=== PATIENT | female | born 1975 | race Caucasian/White ===

== ENCOUNTER 2018-06-15 17:59 | Emergency (ER) | payer BC ==
[2018-06-15 18:15] VITALS: RESP 18
[2018-06-15] MEDS ORDERED: SODIUM CHLORIDE 0.9% 500 ML 500 ML IV STA (18:53)
[2018-06-15] MEDS ORDERED: DIPHENOX-ATROP 2.5-0.025 MG 1 EACH TAB PO STA (18:53)
[2018-06-15] MEDS ORDERED: SODIUM CHLORIDE 0.9% 1,000 ML IV STA (18:53)
--- NOTE | 2018-06-15 18:56 | ED ---
General Adult HPI - General Chief complaint: Nausea/Vomiting/Diarrhea Stated complaint: NVD Time Seen by Provider: 06/15/18 18:00 Source: patient, RN notes reviewed Mode of arrival: ambulatory Limitations: no limitations - History of Present Illness Initial comments: This is a 42-year-old female presents emergency Department stating at 5:30 this point she started having vomiting nausea and diarrhea. Patient states the vomiting stopped at about 1:00 diarrhea continues. Patient denies any abdominal pain. Patient states she occasionally has some abdominal cramping. Patient is unaware that she has a fever but she does have 101 fever in the emergency department. Patient denies any chest pain difficulty breathing shortness of breath. Patient denies any dysuria hematuria urinary frequency. Patient denies any recent antibiotic use. - Related Data Home Medications Medication Instructions Recorded Confirmed ALPRAZolam [Xanax] 1 mg PO HS 06/15/18 06/15/18 Cetirizine HCl [Zyrtec] 10 mg PO HS 06/15/18 06/15/18 Diazepam [Valium] 5 mg PO QID PRN 06/15/18 06/15/18 Gabapentin [Neurontin] 300 mg PO BID 06/15/18 06/15/18 SUMAtriptan SUCCINATE [Imitrex] 50 mg PO DAILY PRN 06/15/18 06/15/18 Sertraline HCl [Zoloft] 150 mg PO HS 06/15/18 06/15/18 Allergies Allergy/AdvReac Type Severity Reaction Status Date / Time latex Allergy Rash/Hives Verified 06/15/18 19:24 Review of Systems ROS Statement: Those systems with pertinent positive or pertinent negative responses have been documented in the HPI. ROS Other: All systems not noted in ROS Statement are negative. Past Medical History Past Medical History: Thyroid Disorder Additional Past Medical History / Comment(s): neuroptahty, migraines, anemia History of Any Multi-Drug Resistant Organisms: None Reported Past Surgical History: Appendectomy Additional Past Surgical History / Comment(s): gastric sleeve Past Psychological History: Anxiety, Depression Smoking Status: Never smoker Past Alcohol Use History: None Reported Past Drug Use History: None Reported General Exam - General Exam Comments Initial Comments: GENERAL: Patient is well-developed and well-nourished. Patient is nontoxic and well- hydrated and is in mild distress. ENT: Neck is soft and supple. No significant lymphadenopathy is noted. Oropharynx is clear. Dry mucous membranes EYES: The sclera were anicteric and conjunctiva were pink and moist. Extraocular m ovements were intact and pupils were equal round and reactive to light. Eyelids were unremarkable. PULMONARY: Unlabored respirations. Good breath sounds bilaterally. No audible rales rhonchi or wheezing was noted. CARDIOVASCULAR: There is a regular rate and rhythm without any murmurs gallops or rubs. ABDOMEN: Soft and nontender with normal bowel sounds. No palpable organomegaly was noted. There is no palpable pulsatile mass. SKIN: Skin is clear with no lesions or rashes and otherwise unremarkable. NEUROLOGIC: Patient is alert and oriented x3. Cranial nerves II through XII are grossly intact. Motor and sensory are also intact. Normal speech, volume and content. Symmetrical smile. MUSCULOSKELETAL: Normal extremities with adequate strength and full range of motion. LYMPHATICS: No significant lymphadenopathy is noted PSYCHIATRIC: Normal psychiatric evaluation. Limitations: no limitations Course Vital Signs 06/15/18 06/15/18 06/15/18 18:11 18:52 19:14 Temperature 99.2 F 101.4 F H 101.4 F H Pulse Rate 117 H 104 H Respiratory 18 18 Rate Blood Pressure 124/64 138/92 O2 Sat by Pulse 97 97 Oximetry 06/15/18 20:15 Temperature 100 F H Pulse Rate 93 Respiratory 18 Rate Blood Pressure 126/66 O2 Sat by Pulse 100 Oximetry Medical Decision Making - Medical Decision Making Patient is to vomiting or diarrhea while in the emergency department. I went back and reevaluate the patient she was feeling better and wanted to go home. - Lab Data Result diagrams: 06/15/18 19:00 06/15/18 19:00 Lab Results 06/15/18 06/15/18 Range/Units 19:00 19:00 WBC 7.5 (3.8-10.6) k/uL RBC 4.84 (3.80-5.40) m/uL Hgb 13.1 (11.4-16.0) gm/dL Hct 39.4 (34.0-46.0) % MCV 81.6 (80.0-100.0) fL MCH 27.1 (25.0-35.0) pg MCHC 33.2 (31.0-37.0) g/dL RDW 14.6 (11.5-15.5) % Plt Count 190 (150-450) k/uL Neutrophils % 88 % Lymphocytes % 6 % Monocytes % 4 % Eosinophils % 1 % Basophils % 0 % Neutrophils # 6.6 (1.3-7.7) k/uL Lymphocytes # 0.5 L (1.0-4.8) k/uL Monocytes # 0.3 (0-1.0) k/uL Eosinophils # 0.0 (0-0.7) k/uL Basophils # 0.0 (0-0.2) k/uL Sodium 137 (137-145) mmol/L Potassium 4.2 (3.5-5.1) mmol/L Chloride 106 (98-107) mmol/L Carbon Dioxide 23 (22-30) mmol/L Anion Gap 8 mmol/L BUN 15 (7-17) mg/dL Creatinine 0.81 (0.52-1.04) mg/dL Est GFR (CKD-EPI)AfAm >90 (>60 ml/min/1.73 sqM) Est GFR (CKD-EPI)NonAf >90 (>60 ml/min/1.73 sqM) Glucose 111 H (74-99) mg/dL Calcium 8.8 (8.4-10.2) mg/dL Total Bilirubin 0.8 (0.2-1.3) mg/dL AST 17 (14-36) U/L ALT 31 (9-52) U/L Alkaline Phosphatase 66 (38-126) U/L Total Protein 6.6 (6.3-8.2) g/dL Albumin 3.7 (3.5-5.0) g/dL Amylase 41 (30-110) U/L Lipase 75 (23-300) U/L Disposition Clinical Impression: Gastroenteritis Disposition: HOME SELF-CARE Condition: Good Instructions (If sedation given, give patient instructions): Gastroenteritis (ED) Is patient prescribed a controlled substance at d/c from ED?: No Referrals: Jhony Bonilla MD [Primary Care Provider] - 1-2 days Time of Disposition: 20:20
[2018-06-15] MEDS ORDERED: ACETAMINOPHEN TAB 500 MG TAB PO STA (18:57)
[2018-06-15] MEDS ORDERED: IBUPROFEN 600 MG TAB PO STA (18:57)
[2018-06-15 19:06] LABS: Basophils % (A) 0 %; Eosinophils % (A) 1 %; HCT 39.4 % (34.0-46.0); HGB 13.1 gm/dL (11.4-16.0); Lymphocytes # (A) 0.5 k/uL (1.0-4.8); Lymphocytes % (A) 6 %; MCH 27.1 pg (25.0-35.0); MCHC 33.2 g/dL (31.0-37.0); MCV 81.6 fL (80.0-100.0); Monocytes # (A) 0.3 k/uL (0-1.0); Monocytes % (A) 4 %; Neutrophils # (A) 6.6 k/uL (1.3-7.7); Neutrophils % (A) 88 %; Platelet Count 190 k/uL (150-450); RBC 4.84 m/uL (3.80-5.40); RDW 14.6 % (11.5-15.5); WBC 7.5 k/uL (3.8-10.6)
[2018-06-15 19:15] LABS: ALT 31 U/L (9-52); AST 17 U/L (14-36); Albumin 3.7 g/dL (3.5-5.0); Alkaline Phosphatase 66 U/L (38-126); Amylase 41 U/L (30-110); Anion Gap 8 mmol/L; Blood Urea Nitrogen 15 mg/dL (7-17); Calcium 8.8 mg/dL (8.4-10.2); Carbon Dioxide 23 mmol/L (22-30); Chloride 106 mmol/L (98-107); Glucose 111 mg/dL (74-99); Lipase 75 U/L (23-300); Potassium 4.2 mmol/L (3.5-5.1); Sodium 137 mmol/L (137-145); Total Bilirubin 0.8 mg/dL (0.2-1.3); Total Protein 6.6 g/dL (6.3-8.2)
[2018-06-15 20:16] VITALS: BP 126/66; PULSE 93; TEMP 100
[2018-06-15] MEDS ORDERED: DIPHENOX-ATROP 2.5-0.025 MG 1 EACH TAB PO PRN (20:20)
[2018-06-15] MEDS ORDERED: DIPHENOX-ATROP STARTER PACK 8 TAB BTL PO STA (20:32)
== END 2018-06-15 20:38 | disposition home or self-care (01) ==
LOC: EC 17:59
DX: K52.9 Noninfective gastroenteritis and colitis, unspecified (principal); G43.909 Migraine, unspecified, not intractable, without status migrainosus; F32.9 Major depressive disorder, single episode, unspecified; F41.9 Anxiety disorder, unspecified; Z79.899 Other long term (current) drug therapy; Z91.040 Latex allergy status; Z90.49 Acquired absence of other specified parts of digestive tract
CPT/HCPCS: 36415; 80053; 82150; 83690; 85025; 96360; 99284

== ENCOUNTER 2018-09-26 23:41 | Emergency (ER) | payer BC ==
[2018-09-27 00:18] VITALS: RESP 18; TEMP 98.2
[2018-09-27] MEDS ORDERED: IBUPROFEN 400 MG TAB PO STA (01:20)
[2018-09-27] MEDS ORDERED: HYDROcodone/APAP 7.5-325MG 1 EACH TAB PO ONE (01:21)
--- NOTE | 2018-09-27 01:34 | ED ---
Fall HPI - General Chief Complaint: Fall Stated Complaint: Fall, R Lower Ext Pain Time Seen by Provider: 09/27/18 00:30 Source: patient Mode of arrival: wheelchair - History of Present Illness Initial Comments: this patient is a 43-year-old woman who states that she had a fall tonight. Patient states that she had slipped on a bare hardwood floor that was slippery. She went down and landed on her right knee and then fell to the side striking her right hip and ankle. He did not have any head or neck injury. She denies any pain there as well as in the chest or abdomen. No other extremity injuries. MD Complaint: fall -: hour(s) Fall From: standing Fall Witnessed: no Place Fall Occurred: home Loss of Consciousness: none Prolonged Down Time?: no Symptoms Prior to Fall: none Location - Extremities: Right: Knee, Ankle Severity: moderate Quality: aching Context: tripped/slipped Associated Symptoms: denies - Related Data Home Medications Medication Instructions Recorded Confirmed ALPRAZolam [Xanax] 1 mg PO HS 06/15/18 09/27/18 Cetirizine HCl [Zyrtec] 10 mg PO HS 06/15/18 09/27/18 Diazepam [Valium] 5 mg PO QID PRN 06/15/18 09/27/18 Gabapentin [Neurontin] 300 mg PO BID 06/15/18 09/27/18 Sertraline HCl [Zoloft] 150 mg PO HS 06/15/18 09/27/18 Previous Rx's Medication Instructions Recorded Hydrocodone/Acetaminophen [[place] 1 each PO Q6HR PRN #10 tab 09/27/18 5-325] Ibuprofen 800 mg PO TID #20 tablet 09/27/18 Allergies Allergy/AdvReac Type Severity Reaction Status Date / Time latex Allergy Rash/Hives Verified 09/27/18 00:18 Review of Systems ROS Statement: Those systems with pertinent positive or pertinent negative responses have been documented in the HPI. ROS Other: All systems not noted in ROS Statement are negative. Constitutional: Denies: fever, weakness Eyes: Denies: vision change ENT: Denies: epistaxis Respiratory: Denies: cough, dyspnea Cardiovascular: Denies: chest pain, syncope Gastrointestinal: Denies: abdominal pain, nausea, vomiting Genitourinary: Denies: dysuria, hematuria Musculoskeletal: Reports: as per HPI, arthralgia. Denies: back pain Skin: Denies: rash Neurological: Denies: headache, weakness, numbness Past Medical History Past Medical History: Thyroid Disorder Additional Past Medical History / Comment(s): neuropathy, migraines, anemia History of Any Multi-Drug Resistant Organisms: None Reported Past Surgical History: Appendectomy Additional Past Surgical History / Comment(s): gastric sleeve Past Psychological History: Anxiety, Depression Smoking Status: Never smoker Past Alcohol Use History: None Reported Past Drug Use History: None Reported General Exam Limitations: physical limitation General appearance: alert, in no apparent distress Head exam: Present: atraumatic, normocephalic Eye exam: Present: normal appearance. Absent: scleral icterus, conjunctival injection Neck exam: Present: full ROM. Absent: normal inspection, tenderness, meningismus Respiratory exam: Present: normal lung sounds bilaterally. Absent: respiratory distress, wheezes, rales, rhonchi, stridor Cardiovascular Exam: Present: regular rate, normal rhythm, normal heart sounds. Absent: systolic murmur, diastolic murmur, rubs, gallop GI/Abdominal exam: Present: soft. Absent: distended, tenderness, guarding, rebound, mass Extremities exam: Present: normal inspection, normal capillary refill. Absent: pedal edema, calf tenderness Back exam: Present: normal inspection. Absent: CVA tenderness (R), CVA tenderness (L) Neurological exam: Present: alert Skin exam: Present: warm, dry, intact, normal color. Absent: rash Course Vital Signs 09/27/18 00:12 Temperature 98.2 F Pulse Rate 72 Respiratory 18 Rate Blood Pressure 133/90 O2 Sat by Pulse 98 Oximetry Disposition Clinical Impression: Fall, Contusion, Ankle sprain Disposition: HOME SELF-CARE Condition: Good Instructions (If sedation given, give patient instructions): Ankle Sprain (ED), Knee Pain (ED) Prescriptions: Ibuprofen 800 mg PO TID #20 tablet Hydrocodone/Acetaminophen [[place] 5-325] 1 each PO Q6HR PRN #10 tab PRN Reason: Pain Is patient prescribed a controlled substance at d/c from ED?: Yes When asked, does pt state using other controlled substances?: Yes If prescribed controlled substance>3 days was MAPS reviewed?: Prescribed <3 Days If opioid is for acute pain is fill amount 7 days or less?: Yes If Rx opioid, was Start Talking consent form obtained?: Yes Referrals: Jhony Bonilla MD [Primary Care Provider] - 1-2 days
--- NOTE | 2018-09-27 02:16 | XR ---
EXAM: XR Right Tibia and Fibula, 2 Views CLINICAL HISTORY: ITS.REASON XR Reason: Pain TECHNIQUE: Frontal and lateral views of the right tibia and fibula. COMPARISON: No relevant prior studies available. FINDINGS: Bones/joints: Unremarkable. No acute fracture. No dislocation. Soft tissues: Unremarkable. No radiopaque foreign body. IMPRESSION: Normal right tibia and fibula x-rays.
--- NOTE | 2018-09-27 02:17 | XR ---
EXAM: XR Right Femur, 2 Views CLINICAL HISTORY: ITS.REASON XR Reason: Pain TECHNIQUE: Frontal and lateral views of the right femur. COMPARISON: No relevant prior studies available. FINDINGS: Bones/joints: Unremarkable. No acute fracture. No dislocation. Soft tissues: Unremarkable. IMPRESSION: Normal right femur x-rays.
[2018-09-27 02:55] VITALS: BP 138/81; PULSE 71
== END 2018-09-27 02:54 | disposition home or self-care (01) ==
LOC: EC 23:41
DX: S93.401A Sprain of unspecified ligament of right ankle, initial encounter (principal); S80.01XA Contusion of right knee, initial encounter; G62.9 Polyneuropathy, unspecified; F32.9 Major depressive disorder, single episode, unspecified; F41.9 Anxiety disorder, unspecified; Z91.040 Latex allergy status; Z79.899 Other long term (current) drug therapy; Z86.69 Personal history of other diseases of the nervous system and sense organs; W01.0XXA Fall on same level from slipping, tripping and stumbling without subsequent striking against object, initial encounter; Y93.01 Activity, walking, marching and hiking; Y92.009 Unspecified place in unspecified non-institutional (private) residence as the place of occurrence of the external cause
CPT/HCPCS: 99283

== ENCOUNTER 2019-07-15 11:19 | Emergency (ER) | payer BC, OTHER ==
[2019-07-15 11:25] VITALS: BP 162/100; PULSE 72; RESP 18; TEMP 98
--- NOTE | 2019-07-15 11:39 | ED ---
General Adult HPI - General Chief complaint: Extremity Injury, Upper Stated complaint: finger lac Time Seen by Provider: 07/15/19 11:26 Source: patient, RN notes reviewed Mode of arrival: ambulatory Limitations: no limitations - History of Present Illness Initial comments: 43-year-old female with a past medical history of neuropathy, migraines, anemia presents to the emergency department for a chief complaint of finger problem. Patient states she "slammed her finger in the car door" yesterday afternoon. States that she had a small laceration. She was seen at [facility], had negative x-rays of the finger. She states that the wound was then glued. Patient states that now she is concerned that it was glued instead of stitched. States that she is concerned infection could get trapped under the glue. She denies any streaking or spreading redness. Does state it appears somewhat swollen. She does not have fever or chills. Tetanus was updated.Patient has no other complaints at this time including shortness of breath, chest pain, abdominal pain, nausea or vomiting, headache, or visual changes. - Related Data Home Medications Medication Instructions Recorded Confirmed ALPRAZolam [Xanax] 1 mg PO HS 06/15/18 09/27/18 Cetirizine HCl [Zyrtec] 10 mg PO HS 06/15/18 09/27/18 Diazepam [Valium] 5 mg PO QID PRN 06/15/18 09/27/18 Gabapentin [Neurontin] 300 mg PO BID 06/15/18 09/27/18 Sertraline HCl [Zoloft] 150 mg PO HS 06/15/18 09/27/18 Previous Rx's Medication Instructions Recorded Hydrocodone/Acetaminophen [[place] 1 each PO Q6HR PRN #10 tab 09/27/18 5-325] Ibuprofen 800 mg PO TID #20 tablet 09/27/18 Acetaminophen [Tylenol] 500 mg PO Q4-6H PRN #20 tab 07/15/19 Cephalexin [Keflex] 500 mg PO Q6HR 7 Days #28 cap 07/15/19 Allergies Allergy/AdvReac Type Severity Reaction Status Date / Time latex Allergy Rash/Hives Verified 07/15/19 11:25 Review of Systems ROS Statement: Those systems with pertinent positive or pertinent negative responses have been documented in the HPI. ROS Other: All systems not noted in ROS Statement are negative. Past Medical History Past Medical History: Thyroid Disorder Additional Past Medical History / Comment(s): neuropathy, migraines, anemia History of Any Multi-Drug Resistant Organisms: None Reported Past Surgical History: Appendectomy Additional Past Surgical History / Comment(s): gastric sleeve Past Psychological History: Anxiety, Depression Smoking Status: Never smoker Past Alcohol Use History: None Reported Past Drug Use History: None Reported General Exam Limitations: no limitations General appearance: alert, in no apparent distress Head exam: Present: atraumatic, normocephalic, normal inspection Eye exam: Present: normal appearance, PERRL, EOMI. Absent: scleral icterus, conjunctival injection, periorbital swelling ENT exam: Present: normal exam, mucous membranes moist Neck exam: Present: normal inspection. Absent: tenderness, meningismus, lymphadenopathy Respiratory exam: Present: normal lung sounds bilaterally. Absent: respiratory distress, wheezes, rales, rhonchi, stridor Cardiovascular Exam: Present: regular rate, normal rhythm, normal heart sounds. Absent: systolic murmur, diastolic murmur, rubs, gallop, clicks Extremities exam: Present: other (Patient has glue noted to the dorsum of the right second digit just proximal to the nail bed. There is no surrounding erythema or edema. There is no streaking redness. There is no evidence of infection. No purulent material.) Neurological exam: Present: alert Course Vital Signs 07/15/19 11:21 Temperature 98.0 F Pulse Rate 72 Respiratory 18 Rate Blood Pressure 162/100 O2 Sat by Pulse 98 Oximetry Medical Decision Making - Medical Decision Making HPI and physical exam as documented. Patient had negative x-rays at [facility]. I do not see any evidence of infection. There is unlikely to be infection within a less than 24-hour timeframe. However I did discuss with patient that we will start her on antibiotics to prevent infection and this did ease her anxiety somewhat. I also discussed reasons to return to the emergency department that would includes streaking or spreading redness, significant edema, fever, or purulent drainage. She is in agreement with this. She does request a prescription for Tylenol as well. She will return for any worsening symptoms and will otherwise follow up with primary care. Disposition Clinical Impression: Laceration Disposition: HOME SELF-CARE Condition: Good Instructions (If sedation given, give patient instructions): Laceration (ED), Skin Adhesive Care (ED) Additional Instructions: Take antibiotic as directed. Keep monitoring the finger for any worsening symptoms and return if these occur. These could include purulent drainage, streaking redness, fevers. Return if you have any other concerns as well. Otherwise follow-up with primary care for recheck in one to 2 days. Prescriptions: Cephalexin [Keflex] 500 mg PO Q6HR 7 Days #28 cap Acetaminophen [Tylenol] 500 mg PO Q4-6H PRN #20 tab PRN Reason: Pain Is patient prescribed a controlled substance at d/c from ED?: No Referrals: Gildardo Muller MD [Primary Care Provider] - 1-2 days Time of Disposition: 11:37
== END 2019-07-15 11:44 | disposition home or self-care (01) ==
LOC: EC 11:19
DX: S61.210A Laceration without foreign body of right index finger without damage to nail, initial encounter (principal); F41.9 Anxiety disorder, unspecified; F32.9 Major depressive disorder, single episode, unspecified; G62.9 Polyneuropathy, unspecified; Z79.899 Other long term (current) drug therapy; Z91.040 Latex allergy status; W23.0XXA Caught, crushed, jammed, or pinched between moving objects, initial encounter
CPT/HCPCS: 99282

== ENCOUNTER 2022-09-07 08:18 | Day surgery (SDC) | payer BC, OTHER ==
[2022-09-03 09:31] VITALS: BMI 49.8
[~2022-09-07 08:18] MED LIST: LACTATED RINGERS 1,000 ML IV SCH; LIDOCAINE 1% (10MG/ML) FOR IV START INTRADERMA PRN
[2022-09-07 08:47] VITALS: TEMP 97
[2022-09-07] MEDS ORDERED: PROPOFOL 10 MG/ML 20 ML VIAL IV ONE (09:18)
--- NOTE | 2022-09-07 09:20 | P.GSHP ---
History of Present Illness H&P Date: 09/07/22 Chief Complaint: Colon cancer screening 46-year-old female here today for colonoscopy. No bowel complaints currently. Several months ago she did have diverticulitis. No rectal bleeding. No family history of colon cancer. Past Medical History Past Medical History: Thyroid Disorder Additional Past Medical History / Comment(s): neuropathy (nerve damage left arm., migraines., anemia History of Any Multi-Drug Resistant Organisms: None Reported Past Surgical History: Appendectomy Additional Past Surgical History / Comment(s): gastric sleeve (2018-[facility]) Past Anesthesia/Blood Transfusion Reactions: No Reported Reaction Past Psychological History: Anxiety, Depression Smoking Status: Current some day smoker Past Alcohol Use History: Occasional Past Drug Use History: Marijuana Additional Drug Use History / Comment(s): edibles -gummies - Past Family History Mother Family Medical History: No Reported History Medications and Allergies Home Medications Medication Instructions Recorded Confirmed Type Cetirizine HCl [Zyrtec] 10 mg PO HS 06/15/18 09/07/22 History Ergocalciferol [Vitamin D2 (1250 50,000 unit PO WEEKLY 09/03/22 09/07/22 History Mcg = 36003 Iu)] FLUoxetine HCL [Prozac] 40 mg PO HS 09/03/22 09/07/22 History Iron 1 dose PO DAILY 09/03/22 09/07/22 History Multivit with Calcium,Iron,Min 1 each PO DAILY 09/03/22 09/07/22 History [Women's Multivitamin] busPIRone HCL [Buspirone HCl] 15 mg PO BID 09/03/22 09/07/22 History traZODone HCL [Desyrel] 50 mg PO HS 09/03/22 09/07/22 History oxyBUTYnin chloride [oxyBUTYnin 5 mg PO DAILY 09/07/22 09/07/22 History chloride ER] Allergies Allergy/AdvReac Type Severity Reaction Status Date / Time latex Allergy Rash/Hives Verified 09/07/22 08:43 Surgical - Exam Vital Signs Temp Pulse Resp BP Pulse Ox 97.0 F L 81 16 151/72 98 09/07/22 08:46 09/07/22 08:46 09/07/22 08:46 09/07/22 08:46 09/07/22 08:46 Physical exam: General: Well-developed, well-nourished HEENT: Normocephalic, sclerae nonicteric Abdomen: Nontender, nondistended Extremities: No edema Neuro: Alert and oriented Assessment and Plan (1) Colon cancer screening Narrative/Plan: Will proceed with colonoscopy at this time Current Visit: Yes Status: Acute Code(s): Z12.11 - ENCOUNTER FOR SCREENING FOR MALIGNANT NEOPLASM OF COLON SNOMED Code(s): 772142149
--- NOTE | 2022-09-07 09:38 | P.PCN ---
Date of Procedure: 09/07/22 Procedure(s) Performed: PREOPERATIVE DIAGNOSIS: Colon cancer screening POSTOPERATIVE DIAGNOSIS: Diverticulosis PROCEDURE: Colonoscopy ANESTHESIA: MAC SURGEON: Surya Gallardo M.D. SPECIMENS: None ENDOSCOPIC PROCEDURE: The patient was placed on the endoscopy table in the left decubitus position. The Olympus colonoscope was inserted into the anus and passed under direct visualization to the base of the cecum. The appendiceal orifice was visualized. From that point the scope was slowly withdrawn inspe cting all surfaces carefully. There were no neoplastic inflammatory or polypoid lesions throughout the cecum, ascending, transverse, descending, sigmoid and rectum. There was scattered diverticulosis noted throughout the colon. Digital rectal examination was normal. The patient was taken to the recovery room in stable condition per anesthesia guidelines. RECOMMENDATIONS: Resume diet. Follow-up colonoscopy 10 years.
[2022-09-07 09:44] VITALS: RESP 18
[2022-09-07 10:05] VITALS: BP 133/72; PULSE 78
== END 2022-09-07 10:19 | disposition home or self-care (01) ==
LOC: ORWHC2ENDO 08:18
PROVIDERS: ATTEND Surgery
DX: Z12.11 Encounter for screening for malignant neoplasm of colon (principal); K57.30 Diverticulosis of large intestine without perforation or abscess without bleeding; E07.9 Disorder of thyroid, unspecified; G62.9 Polyneuropathy, unspecified; F41.8 Other specified anxiety disorders; G43.909 Migraine, unspecified, not intractable, without status migrainosus; D64.9 Anemia, unspecified; F10.90 Alcohol use, unspecified, uncomplicated; F17.200 Nicotine dependence, unspecified, uncomplicated; F12.90 Cannabis use, unspecified, uncomplicated; Z90.49 Acquired absence of other specified parts of digestive tract; Z98.84 Bariatric surgery status; Z79.890 Hormone replacement therapy; Z79.899 Other long term (current) drug therapy; Z91.040 Latex allergy status
CPT/HCPCS: 81025; 45378; J2704

== ENCOUNTER 2023-05-26 12:00 | Observation (INO) | payer BC, OTHER ==
[2023-05-26 12:17] LABS: Basophils % (A) 0 %; Eosinophils # (A) 0.1 k/uL (0-0.7); Eosinophils % (A) 2 %; HGB 10.8 gm/dL (11.4-16.0); Hypochromasia Slight; Lymphocytes # (A) 2.2 k/uL (1.0-4.8); Lymphocytes % (A) 32 %; MCH 23.8 pg (25.0-35.0); MCHC 31.9 g/dL (31.0-37.0); MCV 74.8 fL (80.0-100.0); Mean Platelet Volume 7.5; Microcytosis Slight; Monocytes # (A) 0.3 k/uL (0-1.0); Monocytes % (A) 4 %; Neutrophils # (A) 4.1 k/uL (1.3-7.7); Neutrophils % (A) 59 %; Platelet Count 232 k/uL (150-450); RBC 4.54 m/uL (3.80-5.40); RDW 14.9 % (11.5-15.5)
--- NOTE | 2023-05-26 12:31 | ED ---
General Adult HPI - General Chief complaint: Chest Pain Stated complaint: Chest pain Time Seen by Provider: 05/26/23 12:00 Source: patient, EMS, RN notes reviewed, old records reviewed Mode of arrival: EMS Limitations: no limitations - History of Present Illness Initial comments: This is a 47-year-old female who presents to the emergency department comp laining of chest pain that started this morning she became very short of breath. When EMS arrived they gave her aspirin and Nitropaste and it relieved her pain. Patient denies any diabetes high blood pressure high cholesterol or smoking history. Patient [place] any family history. Patient states she is chest pain- free at this point. Patient states that the pain was a pressure sensation. Patient denies any recent fever chills or cough. Patient denies any headache patient has numbness weakness. Patient has any back pain. Patient denies abdominal pain patient has nausea vomiting diarrhea. - Related Data Home Medications Medication Instructions Recorded Confirmed Cetirizine HCl [Zyrtec] 10 mg PO HS 06/15/18 09/07/22 Ergocalciferol [Vitamin D2 (1250 50,000 unit PO WEEKLY 09/03/22 09/07/22 Mcg = 93165 Iu)] FLUoxetine HCL [Prozac] 40 mg PO HS 09/03/22 09/07/22 Iron 1 dose PO DAILY 09/03/22 09/07/22 Multivit with Calcium,Iron,Min 1 each PO DAILY 09/03/22 09/07/22 [Women's Multivitamin] busPIRone HCL [Buspirone HCl] 15 mg PO BID 09/03/22 09/07/22 traZODone HCL [Desyrel] 50 mg PO HS 09/03/22 09/07/22 oxyBUTYnin chloride [oxyBUTYnin 5 mg PO DAILY 09/07/22 09/07/22 chloride ER] Allergies Allergy/AdvReac Type Severity Reaction Status Date / Time latex Allergy Rash/Hives Verified 09/07/22 08:43 Review of Systems ROS Statement: Those systems with pertinent positive or pertinent negative responses have been documented in the HPI. ROS Other: All systems not noted in ROS Statement are negative. Past Medical History Past Medical History: Thyroid Disorder Additional Past Medical History / Comment(s): neuropathy (nerve damage left arm., migraines., anemia History of Any Multi-Drug Resistant Organisms: None Reported Past Surgical History: Appendectomy Additional Past Surgical History / Comment(s): gastric sleeve (2018-[facility]) Past Anesthesia/Blood Transfusion Reactions: No Reported Reaction Past Psychological History: Anxiety, Depression Smoking Status: Current some day smoker Past Alcohol Use History: Occasional Past Drug Use History: Marijuana - Past Family History Mother Family Medical History: No Reported History General Exam - General Exam Comments Initial Comments: GENERAL: Patient is well-developed and well-nourished. Patient is nontoxic and well- hydrated and is in no acute distress. ENT: Neck is soft and supple. No significant lymphadenopathy is noted. Oropharynx is clear. Moist mucous membranes. Neck has full range of motion without eliciting any pain. EYES: The sclera were anicteric and conjunctiva were pink and moist. Extraocular movements were intact and pupils were equal round and reactive to light. Eyelids were unremarkable. PULMONARY: Unlabored respirations. Good breath sounds bilaterally. No audible rales rhonchi or wheezing was noted. CARDIOVASCULAR: There is a regular rate and rhythm without any murmurs gallops or rubs. ABDOMEN: Soft and nontender with normal bowel sounds. SKIN: Skin is clear with no lesions or rashes and otherwise unremarkable. NEUROLOGIC: Patient is alert and oriented x3. Cranial nerves II through XII are grossly intact. Motor and sensory are also intact. Normal speech, volume and content. Symmetrical smile. MUSCULOSKELETAL: Normal extremities with adequate strength and full range of motion. No lower extremity swelling or edema. No calf tenderness. LYMPHATICS: No significant lymphadenopathy is noted PSYCHIATRIC: Normal psychiatric evaluation. 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 EKG shows no ST segment ovation or depression Was pt. sent in by a medical professional or institution (, PA, DESULPHURING OPERATOR, urgent care, hospital, or [place] health care facility...) When possible be specific @ -No Did you speak to anyone other than the patient for history (EMS, parent, family, police, friend...)? What history was obtained from this source @ -No Did you review nursing and triage notes (agree or disagree)? Why? @ -I reviewed and agree with nursing and triage notes Were old charts reviewed (outside hosp., previous admission, EMS record, old EKG, old radiological studies, urgent care reports/EKG's, [place] health care facility records)? Report findings @ -I reviewed old charts and prior lab work on this patient Differential Diagnosis (chest pain, altered mental status, abdominal pain women, abdominal pain men, vaginal bleeding, weakness, fever, dyspnea, syncope, headache, dizziness, GI bleed, back pain, seizure, CVA, palpatations, mental health, musculoskeletal)? @ -Differential Chest Pain: Stable Angina, Unstable Angina, STEMI, NSTEMI Aortic Dissection, Pneumothorax, Musculoskeletal, Esophageal Spasm GERD, Cholecystitis, Pancreatitis, Zoster, this is not meant to be an all-inclusive list. EKG interpreted by me (3pts min.). @ -As above X-rays interpreted by me (1pt min.). @ -Chest x-ray shows no acute abnormality CT interpreted by me (1pt min.). @ -None done U/S interpreted by me (1pt. min.). @ -None done What testing was considered but not performed or refused? (CT, X-rays, U/S, labs)? Why? @ -None What meds were considered but not given or refused? Why? @ -None Did you discuss the management of the patient with other professionals (professionals i.e. , PA, DESULPHURING OPERATOR, lab, RT, psych nurse, social media developer, immigration lawyer, teacher, labor relations officer, residential case manager)? Give summary @ -I spoke with Dr. Muller he agreed to admit the patient admitted the patient Was smoking cessation discussed for >3mins.? @ -No Was critical care preformed (if so, how long)? @ -No Were there social determinants of health that impacted care today? How? (Homelessness, low income, unemployed, alcoholism, drug addiction, transportation, low edu. Level, literacy, decrease access to med. care, m[facility], rehab)? @ -No Was there de-escalation of care discussed even if they declined (Discuss DNR or withdrawal of care, Hospice)? DNR status @ -No What co-morbidities impacted this encounter? (DM, HTN, Smoking, COPD, CAD, Cancer, CVA, ARF, Chemo, Hep., AIDS, mental health diagnosis, sleep apnea, morbid obesity)? @ -None Was patient admitted / discharged? Hospital course, mention meds given and route, prescriptions, significant lab abnormalities, going to OR and other pertinent info. @ -Patient was chest pain free and he already received aspirin on her way in. Patient did get Nitropaste. I spoke with Dr. Muller he agreed admit the patient admit the patient I consulted cardiology and I wrote admitting orders Undiagnosed new problem with uncertain prognosis? @ -No Drug Therapy requiring intensive monitoring for toxicity (Heparin, Nitro, Insulin, Cardizem)? @ -No Were any procedures done? @ -No Diagnosis/symptom? @ -Chest pain Acute, or Chronic, or Acute on Chronic? @ -Acute Uncomplicated (without systemic symptoms) or Complicated (systemic symptoms)? @ -Complicated Side effects of treatment? @ -No Exacerbation, Progression, or Severe Exacerbation? @ -No Poses a threat to life or bodily function? How? (Chest pain, USA, NC, pneumonia, PE, COPD, DKA, ARF, appy, cholecystitis, CVA, Diverticulitis, Homicidal, Suicidal, threat to staff... and all critical care pts) @ -Yes this could lead to an NC and endorgan dysfunction - Lab Data Result diagrams: 05/26/23 12:10 05/26/23 12:10 Lab Results 05/26/23 05/26/23 05/26/23 Range/Units 12:10 12:10 12:10 WBC 7.0 (3.8-10.6) k/uL RBC 4.54 (3.80-5.40) m/uL Hgb 10.8 L (11.4-16.0) gm/dL Hct 34.0 (34.0-46.0) % MCV 74.8 L (80.0-100.0) fL MCH 23.8 L (25.0-35.0) pg MCHC 31.9 (31.0-37.0) g/dL RDW 14.9 (11.5-15.5) % Plt Count 232 (150-450) k/uL MPV 7.5 Neutrophils % 59 % Lymphocytes % 32 % Monocytes % 4 % Eosinophils % 2 % Basophils % 0 % Neutrophils # 4.1 (1.3-7.7) k/uL Lymphocytes # 2.2 (1.0-4.8) k/uL Monocytes # 0.3 (0-1.0) k/uL Eosinophils # 0.1 (0-0.7) k/uL Basophils # 0.0 (0-0.2) k/uL Hypochromasia Slight Microcytosis Slight PT 10.0 (10.0-12.5) sec INR 0.9 (<1.2) APTT 20.0 L (22.0-30.0) sec Sodium 139 (137-145) mmol/L Potassium 4.2 (3.5-5.1) mmol/L Chloride 108 H (98-107) mmol/L Carbon Dioxide 23 (22-30) mmol/L Anion Gap 8 mmol/L BUN 12 (7-17) mg/dL Creatinine 0.71 (0.52-1.04) mg/dL Est GFR (CKD-EPI)AfAm >90 (>60 ml/min/1.73 sqM) Est GFR (CKD-EPI)NonAf >90 (>60 ml/min/1.73 sqM) Glucose 94 (74-99) mg/dL Calcium 9.1 (8.4-10.2) mg/dL Magnesium 1.8 (1.6-2.3) mg/dL Total Bilirubin 0.5 (0.2-1.3) mg/dL AST 29 (14-36) U/L ALT 17 (4-34) U/L Alkaline Phosphatase 97 (38-126) U/L Troponin I (0.000-0.034) ng/mL Total Protein 6.3 (6.3-8.2) g/dL Albumin 3.5 (3.5-5.0) g/dL 05/26/23 Range/Units 12:10 WBC (3.8-10.6) k/uL RBC (3.80-5.40) m/uL Hgb (11.4-16.0) gm/dL Hct (34.0-46.0) % MCV (80.0-100.0) fL MCH (25.0-35.0) pg MCHC (31.0-37.0) g/dL RDW (11.5-15.5) % Plt Count (150-450) k/uL MPV Neutrophils % % Lymphocytes % % Monocytes % % Eosinophils % % Basophils % % Neutrophils # (1.3-7.7) k/uL Lymphocytes # (1.0-4.8) k/uL Monocytes # (0-1.0) k/uL Eosinophils # (0-0.7) k/uL Basophils # (0-0.2) k/uL Hypochromasia Microcytosis PT (10.0-12.5) sec INR (<1.2) APTT (22.0-30.0) sec Sodium (137-145) mmol/L Potassium (3.5-5.1) mmol/L Chloride (98-107) mmol/L Carbon Dioxide (22-30) mmol/L Anion Gap mmol/L BUN (7-17) mg/dL Creatinine (0.52-1.04) mg/dL Est GFR (CKD-EPI)AfAm (>60 ml/min/1.73 sqM) Est GFR (CKD-EPI)NonAf (>60 ml/min/1.73 sqM) Glucose (74-99) mg/dL Calcium (8.4-10.2) mg/dL Magnesium (1.6-2.3) mg/dL Total Bilirubin (0.2-1.3) mg/dL AST (14-36) U/L ALT (4-34) U/L Alkaline Phosphatase (38-126) U/L Troponin I <0.012 (0.000-0.034) ng/mL Total Protein (6.3-8.2) g/dL Albumin (3.5-5.0) g/dL Disposition Clinical Impression: Chest pain Disposition: ADMITTED IP TO THIS HOSP Referrals: Christina Ferreira DO [REFERRING] - 1-2 days Time of Disposition: 13:33
[2023-05-26 12:32] LABS: ALT 17 U/L (4-34); AST 29 U/L (14-36); African American GFR (CKD) >90 (>60 ml/min/1.73 sqM); Albumin 3.5 g/dL (3.5-5.0); Alkaline Phosphatase 97 U/L (38-126); Anion Gap 8 mmol/L; Blood Urea Nitrogen 12 mg/dL (7-17); Calcium 9.1 mg/dL (8.4-10.2); Carbon Dioxide 23 mmol/L (22-30); Chloride 108 mmol/L (98-107); Glucose 94 mg/dL (74-99); Magnesium 1.8 mg/dL (1.6-2.3); Non-African American GFR(CKD) >90 (>60 ml/min/1.73 sqM); Potassium 4.2 mmol/L (3.5-5.1); Sodium 139 mmol/L (137-145); Total Bilirubin 0.5 mg/dL (0.2-1.3); Total Protein 6.3 g/dL (6.3-8.2)
[2023-05-26] MEDS: NITROGLYCERIN OINT 1 INCH/GM PACKET TOPICAL STA (12:34)
[2023-05-26 12:39] LABS: INR 0.9 (<1.2)
--- NOTE | 2023-05-26 12:54 | XR ---
EXAMINATION TYPE: XR chest 2V DATE OF EXAM: 05/26/2023 12:49 PM CLINICAL INDICATION:Female, 47 years old with history of Chest Pain; [facility] COMPARISON: Chest radiographs from 06/25/2010 TECHNIQUE: XR chest 2V Frontal and lateral views of the chest. FINDINGS: Lungs/Pleura: There is no evidence of pleural effusion, focal consolidation, or pneumothorax. Pulmonary vascularity: Unremarkable. Heart/mediastinum: Cardiomediastinal silhouette is unremarkable. Musculoskeletal: No acute osseous pathology. Other findings: None IMPRESSION: No acute cardiopulmonary disease/process.
[2023-05-26] MEDS ORDERED: NITROGLYCERIN SL TABS 0.4 MG TAB SUBLINGUAL PRN (13:33)
[2023-05-26] MEDS: NITROGLYCERIN OINT 1 INCH/GM PACKET TOPICAL SCH (17:44)
[2023-05-27] MEDS: LORATADINE 10 MG TAB PO SCH (00:43)
[2023-05-27] MEDS: traZODone HCL 50 MG TAB PO SCH (00:44)
[2023-05-27] MEDS: GABAPENTIN 300 MG CAP PO STA (00:44)
[2023-05-27 06:38] VITALS: TEMP 97.9
[2023-05-27] MEDS: busPIRone HCl 10 MG TAB PO SCH (08:51)
[2023-05-27] MEDS: ASPIRIN 81 MG PO SCH (08:51)
[2023-05-27] MEDS ORDERED: ASPIRIN 325 MG TAB PO SCH (09:00)
[2023-05-27 09:20] VITALS: BP 137/53; PULSE 87; RESP 16
--- NOTE | 2023-05-27 09:42 | P.CRDCN ---
History of Present Illness History of present illness: HISTORY OF PRESENT ILLNESS: This is a 47-year-old female with a past medical history significant for gastric sleeve, morbid obesity, anxiety, depression, nicotine dependence, and marijuana use. Patient does not follow with a superintendent service. We have been asked to see the patient in consultation for chest pain. Patient examined at the bedside chest pain. She states that the pain was in the middle of her chest and felt like a squeezing sensation and also a stabbing sensation. She states she initially thought it was heartburn related so she took Tums with no relief. She reports radiation of pain into her right jaw. She states within 30 minutes the pain was so bad she had her call 911. She received aspirin and nitro and route to the hospital via EMS and states that her pain significantly improved and she rated it at 12/10 down to a 7/10. She states by the time she came to the hospital her chest pain was almost gone. She states that she has received Nitropaste since then and has no further episodes of chest pain or pressure. She states that she is adopted and does not know her family history and is unsure if there is a family history of coronary artery disease. DIAGNOSTICS: - EKG reveals sinus mechanism with no signs of acute ischemia. - Chest xray negative for acute process. - Laboratory data: WBC 7.0. Hemoglobin 10.8. Platelet count 232. Sodium 139. Potassium 4.2. BUN 12. Creatinine 0.71. Troponin negative x 3 - Current home cardiac medications include none. - No previous echocardiogram, stress test, or cardiac catheterization available in EMR for review REVIEW OF SYSTEMS: At the time of my exam: CONSTITUTIONAL: Denies fever or chills. HEENT: Denies blurred vision, vision changes, or eye pain. Denies hemoptysis CARDIOVASCULAR: Denies chest pain. Denies orthopnea. Denies PND. Denies palpitations RESPIRATORY: Denies shortness of breath. GASTROINTESTINAL: Denies abdominal pain. Denies nausea or vomiting. HEMATOLOGIC: Denies bleeding disorders. GENITOURINARY: Denies any blood in urine. SKIN: Denies pruitis. Denies rash. PHYSICAL EXAM: VITAL SIGNS: Reviewed. GENERAL: Well-developed in no acute distress. HEENT: Head is normocephalic. Pupils are equal, round. Sclerae anicteric. Mucous membranes of the mouth are moist. Neck supple. No JVD or thyromegaly LUNGS: Respirations even and unlabored. Lungs essentially clear to auscultation bilaterally. HEART: Regular rate and rhythm. S1 and S2 heard. ABDOMEN: Soft. Nondistended. Nontender. EXTREMITIES: Normal range of motion. No clubbing or cyanosis. Peripheral pulses intact. No lower extremity edema NEUROLOGIC: Awake and alert. Oriented x 3. ASSESSMENT: Chest pain History of sleeve gastrectomy Morbid obesity: BMI 49.9 Anxiety Depression Nicotine dependence Marijuana use PLAN: An acute coronary event has been ruled out Decrease aspirin to 81 mg daily Discontinue Nitropaste Obtain 2D echo to assess cardiac structure and function Patient to undergo stress echocardiogram today If negative, she may be discharged home from a cardiac standpoint Nurse practitioner note has been reviewed by physician. Signing provider agrees with the documented findings, assessment, and plan of care documented by CHANNEL PROGRAM MANAGER as a scribe. Past Medical History Past Medical History: Thyroid Disorder Additional Past Medical History / Comment(s): neuropathy (nerve damage left arm., migraines., anemia History of Any Multi-Drug Resistant Organisms: None Reported Past Surgical History: Appendectomy Additional Past Surgical History / Comment(s): gastric sleeve (2018-[facility]) Past Anesthesia/Blood Transfusion Reactions: No Reported Reaction Past Psychological History: Anxiety, Depression Smoking Status: Current some day smoker Past Alcohol Use History: Occasional Past Drug Use History: Marijuana - Past Family History Mother Family Medical History: No Reported History Medications and Allergies Home Medications Medication Instructions Recorded Confirmed Type Cetirizine HCl [Zyrtec] 10 mg PO HS 06/15/18 05/26/23 History Ergocalciferol [Vitamin D2 (1250 1,250 mcg PO WE 09/03/22 05/26/23 History Mcg = 55561 Iu)] FLUoxetine HCL [PROzac] 40 mg PO DAILY 09/03/22 05/26/23 History busPIRone HCL 15 mg PO BID 09/03/22 05/26/23 History traZODone HCL [Desyrel] 50 mg PO HS 09/03/22 05/26/23 History oxyBUTYnin chloride [oxyBUTYnin 5 mg PO DAILY 09/07/22 05/26/23 History chloride ER] Gabapentin 300 - 600 mg PO HS 05/26/23 05/26/23 History Gabapentin 300 mg PO DAILY@1200 05/26/23 05/26/23 History Magnesium Glycinate 100mg 400 mg PO HS 05/26/23 05/26/23 History Allergies Allergy/AdvReac Type Severity Reaction Status Date / Time latex Allergy Rash/Hives Verified 05/26/23 14:04 Physical Exam Vitals: Vital Signs Temp Pulse Pulse Resp BP Pulse Ox 05/26/23 13:17 76 18 145/73 99 05/26/23 12:36 72 72 18 147/62 98 05/26/23 12:02 98.1 F 71 18 139/69 98 Intake and Output 05/25/23 05/26/23 05/26/23 22:59 06:59 14:59 Other: Weight 131.814 kg Results 05/26/23 12:10 05/26/23 12:10 Cardiac Enzymes 05/26/23 05/26/23 Range/Units 12:10 12:10 AST 29 (14-36) U/L Troponin I <0.012 (0.000-0.034) ng/mL Coagulation 05/26/23 Range/Units 12:10 PT 10.0 (10.0-12.5) sec APTT 20.0 L (22.0-30.0) sec CBC 05/26/23 Range/Units 12:10 WBC 7.0 (3.8-10.6) k/uL RBC 4.54 (3.80-5.40) m/uL Hgb 10.8 L (11.4-16.0) gm/dL Hct 34.0 (34.0-46.0) % Plt Count 232 (150-450) k/uL Comprehensive Metabolic Panel 05/26/23 Range/Units 12:10 Sodium 139 (137-145) mmol/L Potassium 4.2 (3.5-5.1) mmol/L Chloride 108 H (98-107) mmol/L Carbon Dioxide 23 (22-30) mmol/L BUN 12 (7-17) mg/dL Creatinine 0.71 (0.52-1.04) mg/dL Glucose 94 (74-99) mg/dL Calcium 9.1 (8.4-10.2) mg/dL AST 29 (14-36) U/L ALT 17 (4-34) U/L Alkaline Phosphatase 97 (38-126) U/L Total Protein 6.3 (6.3-8.2) g/dL Albumin 3.5 (3.5-5.0) g/dL Current Medications Generic Name Dose Route Start Last Admin Trade Name Freq PRN Reason Stop Dose Admin Aspirin 325 mg 05/27/23 09:00 Aspirin 325 Mg Tab PO DAILY NATI Nitroglycerin 0.4 mg 05/26/23 13:33 Nitroglycerin Sl Tabs 0.4 Mg Tab SUBLINGUAL Q5M PRN Chest Pain Nitroglycerin 1 inch 05/26/23 18:00 Nitroglycerin Oint 1 Inch/Gm Packet TOPICAL Q6HR NATI Intake and Output 05/25/23 05/26/23 05/26/23 22:59 06:59 14:59 Other: Weight 131.814 kg Patient Weight 05/27/23 06:59 Weight 131.814 kg 05/26/23 12:10 05/26/23 12:10
[2023-05-27 11:20] LABS: Chol/HDL Ratio 4.19 Ratio; LDL Cholesterol,Calculated 131.9 mg/dL (0.0-131.0)
--- NOTE | 2023-05-27 11:30 | P.HPIM ---
History of Present Illness H&P Date: 05/27/23 Chief Complaint: Chest pain History and Physical and Discharge Summary: This is a 47-year-old female with past medical history significant for hypo thyroidism, neuropathy, migraines, anemia, anxiety, depression, ongoing nicotine dependence, marijuana use, morbid obesity, gastric sleeve and multiple other medical issues presented to the ER with complaints of midsternal stabbing chest pain radiating up right neck into jaw. Family history of CAD unknown, as patient is adopted .reports recent influenza 1 week ago, completed Tamiflu. Reports yesterday morning, minimal activity, had walked to the kitchen made coffee,returned to couch, with the onset of the above described chest pain .Developed lightheadedness, near syncope, without diaphoresis or shortness of breath .took a handful of Tums, without relief. After 30 minutes, her spouse called EMS. On arrival chest pain had nearly subsided. nitroglycerin drip initiated, complains of headache. Currently denies chest pain, palpitations or shortness of breath. EKG reported sinus rhythm, troponins negative x 3. Lipid panel pending. chest x-ray reported nonacute. Respiratory rate 16, maintaining O2 sats in the high 90s on room air. afebrile,WBC 7.0. Hemoglobin 10.8,Platelets 232. Sodium 139,Potassium 4.2, BUN 12,Creatinine 0.71. Review of Systems ROS Statement: Those systems with pertinent positive or pertinent negative responses have been documented in the HPI. ROS Other: All systems not noted in ROS Statement are negative. Past Medical History Past Medical History: Thyroid Disorder Additional Past Medical History / Comment(s): neuropathy (nerve damage left arm., migraines., anemia History of Any Multi-Drug Resistant Organisms: None Reported Past Surgical History: Appendectomy Additional Past Surgical History / Comment(s[facility] Past Anesthesia/Blood Transfusion Reactions: No Reported Reaction Past Psychological History: Anxiety, Depression Smoking Status: Current some day smoker Past Alcohol Use History: Occasional Past Drug Use History: Marijuana - Past Family History Mother Family Medical History: No Reported History Medications and Allergies Home Medications Medication Instructions Recorded Confirmed Type Cetirizine HCl [Zyrtec] 10 mg PO HS 06/15/18 05/26/23 History Ergocalciferol [Vitamin D2 (1250 1,250 mcg PO WE 09/03/22 05/26/23 History Mcg = 43240 Iu)] FLUoxetine HCL [Prozac] 40 mg PO DAILY 09/03/22 05/26/23 History busPIRone HCL [Buspirone HCl] 15 mg PO BID 09/03/22 05/26/23 History traZODone HCL [Desyrel] 50 mg PO HS 09/03/22 05/26/23 History oxyBUTYnin chloride [oxyBUTYnin 5 mg PO DAILY 09/07/22 05/26/23 History chloride ER] Gabapentin 300 - 600 mg PO HS 05/26/23 05/26/23 History Gabapentin 300 mg PO DAILY@1200 05/26/23 05/26/23 History Magnesium Glycinate 100mg 400 mg PO HS 05/26/23 05/26/23 History Allergies Allergy/AdvReac Type Severity Reaction Status Date / Time latex Allergy Rash/Hives Verified 05/26/23 14:04 Physical Exam Vitals: Vital Signs Temp Pulse Pulse Resp BP BP Pulse Ox 05/27/23 08:53 87 16 137/53 99 05/27/23 08:00 16 05/27/23 06:11 97.9 F 78 18 127/74 98 05/26/23 22:11 98.2 F 71 18 140/74 96 05/26/23 17:29 74 18 142/76 98 05/26/23 13:17 76 18 145/73 99 05/26/23 12:36 72 72 18 147/62 98 05/26/23 12:02 98.1 F 71 18 139/69 98 Intake and Output 05/26/23 05/27/23 05/27/23 22:59 06:59 14:59 Output Total 3100 Balance -3100 Output: Drainage 3100 Abdomen 3100 PHYSICAL EXAM: VITAL SIGNS: [As above] GENERAL: Well-nourished, alert and oriented x 3, sitting up on stretcher, no acute distress HEENT: Normocephalic conjunctivae normal. eyes normal. NECK: Supple, no JVD. No thyroid enlargement. No LNs CARDIOVASCULAR: S1, S2 regular.. No murmur RESPIRATION: Unlabored, equal air entry, breath sounds diminished in the bases. No rhonchi or crackles. No bronchial breathing. ABDOMEN: Soft, nondistended, nontender . No guarding. no masses palpable. No ascites, No hepatosplenomegaly.Bowel sounds heard. LEGS: No edema. no swelling NERVOUS SYSTEM: Cranial N 2-12 grossly normal. No focal deficits. Strength and sensation grossly intact.. Skin: Warm and dry, no rash Results CBC & Chem 7: 05/26/23 12:10 05/26/23 12:10 Labs: Abnormal Lab Results - Last 24 Hours (Table) 05/26/23 05/26/23 05/26/23 Range/Units 12:10 12:10 12:10 Hgb 10.8 L (11.4-16.0) gm/dL MCV 74.8 L (80.0-100.0) fL MCH 23.8 L (25.0-35.0) pg APTT 20.0 L (22.0-30.0) sec Chloride 108 H (98-107) mmol/L Assessment and Plan Assessment: Chest pain, troponin negative x 1,ACS ruled out. Recent influenza, completed Tamiflu Thyroid disorder Neuropathy History of migraines Chronic anemia Anxiety Depression Marijuana use Ongoing nicotine dependence Morbid obesity History of gastric sleeve Plan: Continue on current medication regimen ,monitoring and symptomatic treatme nt. Evaluated by cardiology, echo ordered. Stress echocardiogram pending. Patient will be discharged home today in a stable condition with guarded prognosis pending stress test results, final DC recommendations and clearance per cardiology. Discharge Medication List Cetirizine HCl [Zyrtec] 10 mg PO HS 06/15/18 [History] Ergocalciferol [Vitamin D2 (1250 Mcg = 50560 Iu)] 1,250 mcg PO WE 09/03/22 [History] FLUoxetine HCL [PROzac] 40 mg PO DAILY 09/03/22 [History] busPIRone HCL 15 mg PO BID 09/03/22 [History] traZODone HCL [Desyrel] 50 mg PO HS 09/03/22 [History] oxyBUTYnin chloride [oxyBUTYnin chloride ER] 5 mg PO DAILY 09/07/22 [History] Gabapentin 300 - 600 mg PO HS 05/26/23 [History] Gabapentin 300 mg PO DAILY@1200 05/26/23 [History] Magnesium Glycinate 100mg 400 mg PO HS 05/26/23 [History] The impression and plan of care has been dictated as directed. : I performed a history and examination of this patient, discussed the same with the dictator. I agree with the dictator's note ,documented as a scribe. Any additional findings or plans will be noted.
[2023-05-27] MEDS ORDERED: GABAPENTIN 300 MG CAP PO SCH ×2 (12:00→21:00)
--- NOTE | 2023-05-27 12:26 | CA ---
Stress Echo Report Annalisa Rogers Age: 47 Gender: F : 1975 Exam Date: 05/27/2023 11:40 Exam Location: [facility] Ht (in): 64 Wt (lb): 290 Ordering Physician: Roxi Jama Referring Physician: [id number] Loop Machine Operator: [email or web address], Technologist Procedure CPT: Indication: CP ICD-9 Codes: Rhythm: Patient History: Chest pain Cardiac Medications: Medications in past 24 hours: Contrast: Stress Results Protocol: Jose Total dose(mL): Exercise Duration (min:sec): 5:[address] Depression (mm): Angina Score: Fisher Score: METS: 7.1 Resting HR: 74 Resting BP: 119 / 84 Peak HR: 164 Peak BP: 199 / 83 Max Predicted HR: 174 94 % Max Predicted HR Target HR: 148 Double Product: 92206 Stress Summary: BP Response: Reason for Termination: Reached target heart rate or work-load. Cardiac Symptoms: Dyspnea ECG Analysis Resting ECG: Stress ECG: Arrhythmia: Echo Analysis Resting Echo: Peak Echo Analysis: MEASUREMENTS (Male/Female) Normal Values CONCLUSIONS Patient underwent exercise stress echo with a Jose protocol treadmill stress test. Patient exercised into Stage 2 for a total of 5 minutes and 33 seconds reaching a total of 7.1 METS. Patient's maximum heart rate was 164 which represented 94% age- predicted maximum heart rate. Stress EKG portion: At baseline patient's EKG showed normal sinus rhythm, normal axis, no significant ST or T wave abnormalities. At peak exercise, EKG showed no significant change from baseline. Stress echo portion: 2-D echocardiogram was performed in the parasternal long, personal short, apical 2 and apical four-chamber views at rest, peak exercise and in recovery. At baseline, echocardiogram showed left ventricular ejection fraction 55% without wall motion abnormalities. With peak exercise, echocardiogram shows improvement in left ventricular ejection fraction, increase contractility, decrease in left ventricular end systolic dimension without wall motion abnormalities consistent with a normal response to exercise. Conclusions: 1. Normal EKG and echo response to exercise without evidence of inducible ischemia. 2. Fair exercise capacity. Dr. Everardo Moseley DO (Electronically Signed) Final Date: 27 May 2023 12:25
--- NOTE | 2023-05-27 14:49 | CA ---
Transthoracic Echo Report Name: Annalisa Rogers Age: 47 Gender: F : 1975 Exam Date: 05/27/2023 11:29 Exam Location: [facility] Ht (in): 64 Wt (lb): 290 Ordering Physician: Roxi Jama Attending/Referring Phys: [id number], Wiley Improvement Nurse Andre Arreola RD Procedure CPT: Indications: LV function Cardiac Hx: Technical Quality: Fair Contrast 1: Total Dose (mL): Contrast 2: Total Dose (mL): MEASUREMENTS (Male / Female) Normal Values 2D ECHO LV Diastolic Diameter PLAX 4.4 cm 4.2 - 5.9 / 3.9 - 5.3 cm LV Systolic Diameter PLAX 2.8 cm IVS Diastolic Thickness 0.9 cm 0.6 - 1.0 / 0.6 - 0.9 cm LVPW Diastolic Thickness 1.0 cm 0.6 - 1.0 / 0.6 - 0.9 cm LV Relative Wall Thickness 0.4 RV Internal Dim ED PLAX 2.8 cm LVOT Diameter 2.0 cm Aortic Root Diameter 2.7 cm LA Systolic Diameter LX 2.5 cm 3.0 - 4.0 / 2.7 - 3.8 cm LV Diastolic Volume MOD BP 49.4 cm??? 67 - 155 / 56 - 104 cm??? LV Systolic Volume MOD BP 17.7 cm??? 22 - 58 / 19 - 49 cm??? LV Ejection Fraction MOD BP 64.3 % >= 55 % LV Cardiac Index MOD BP 832.5 cm???/min???m??? LV Diastolic Volume MOD 4C 70.0 cm??? LV Systolic Volume MOD 4C 25.6 cm??? LV Ejection Fraction MOD 4C 63.4 % LV Cardiac Index MOD 4C 1161.8 cm???/min???m??? LV Diastolic Length 4C 6.7 cm LV Systolic Length 4C 5.6 cm LV Diastolic Volume MOD 2C 33.2 cm??? LV Systolic Volume MOD 2C 11.7 cm??? LV Ejection Fraction MOD 2C 64.8 % LV Cardiac Index MOD 2C 564.2 cm???/min???m??? LV Diastolic Length 2C 6.3 cm LV Systolic Length 2C 5.4 cm LA Volume 30.8 cm??? 18 - 58 / 22 - 52 cm??? LA Volume Index 12.2 cm???/m??? 16 - 28 cm???/m??? DOPPLER AV Peak Velocity 133.2 cm/s AV Peak Gradient 7.1 mmHg AV Mean Velocity 90.1 cm/s AV Mean Gradient 3.8 mmHg AV Velocity Time Integral 27.7 cm LVOT Peak Velocity 98.0 cm/s LVOT Peak Gradient 3.8 mmHg LVOT Velocity Time Integral 22.8 cm LVOT Stroke Volume 69.6 cm??? LVOT Stroke Volume Index 30.4 ml/m??? LVOT Cardiac Index 1824.9 cm???/min???m??? AV Area Cont Eq vti 2.5 cm??? AV Area Cont Eq pk 2.2 cm??? MV Peak Velocity 99.7 cm/s MV Peak Gradient 4.0 mmHg MV Mean Velocity 54.3 cm/s MV Mean Gradient 1.5 mmHg MV Velocity Time Integral 31.4 cm MR Peak Velocity 372.3 cm/s MR Peak Gradient 55.4 mmHg Mitral E Point Velocity 102.6 cm/s Mitral A Point Velocity 93.9 cm/s Mitral E to A Ratio 1.1 MV Deceleration Time 212.3 ms MV E' Velocity 7.9 cm/s Mitral E to MV E' Ratio 13.0 TR Peak Velocity 252.1 cm/s TR Peak Gradient 25.4 mmHg Right Ventricular Systolic Press 30.4 mmHg PV Peak Velocity 103.6 cm/s PV Peak Gradient 4.3 mmHg FINDINGS Left Ventricle Normal LV size and wall hickness. Left ventricular ejection fraction is estimated at 55-60 %. Right Ventricle Normal right ventricular size. RVSP= 30mmHg. Right Atrium Normal right atrial size. Left Atrium Normal left atrial size. Mitral Valve Structurally normal mitral valve. Mild MR. Aortic Valve Trileaflet aortic valve. No aortic valve stenosis or regurgitation. Tricuspid Valve Structurally normal tricuspid valve. Mild TR. Pulmonic Valve Structurally normal pulmonic valve. No pulmonic regurgitation. Pericardium Not well visualized. Aorta Normal size aortic root. CONCLUSIONS Left ventricular ejection fraction 55-60% RVSP 30 Mild mitral regurgitation Tricuspid regurgitation No pericardial effusion Previewed by: Dr. Everardo Moseley DO (Electronically Signed) Final Date: 27 May 2023 14:48
[2023-05-27] MEDS ORDERED: traZODone HCL 50 MG TAB PO SCH (21:00)
== END 2023-05-27 14:28 | disposition home or self-care (01) ==
LOC: EC 12:00 → 6NMEDSUR 13:40
PROVIDERS: ADMIT Family Medicine; ATTEND Family Medicine
DX: R07.9 Chest pain, unspecified (principal); E66.01 Morbid (severe) obesity due to excess calories; F41.9 Anxiety disorder, unspecified; F32.A Depression, unspecified; G62.9 Polyneuropathy, unspecified; F17.210 Nicotine dependence, cigarettes, uncomplicated; F12.90 Cannabis use, unspecified, uncomplicated; Z68.42 Body mass index [BMI] 45.0-49.9, adult; Z98.84 Bariatric surgery status; Z79.899 Other long term (current) drug therapy
CPT/HCPCS: 99285; 36415; 93005; 93306; 93351; 80061; 80053; 83735; 84484; 85025; 85610; 85730; 71046; G0378 ×2